=== PATIENT | female | born 1985 | race Hispanic/Latino ===

== ENCOUNTER 2017-12-24 06:51 | Inpatient (IN) | payer BC ==
[2017-12-24 06:58] VITALS: BMI 35.1
[2017-12-24] MEDS ORDERED: Oxytocin 30 units/LR 500ML 30 U/500 ML BAG IV PRN (07:05)
[2017-12-24] MEDS: Lactated Ringer's 1,000 ML IV SCH ×4 (07:15→17:47)
[2017-12-24] MEDS ORDERED: ePHEDrine 50 mg/ml Inj ONE (08:08)
[2017-12-24] MEDS ORDERED: Morphine 1 mg/ml preservative-free Inj(Duramorph) ONE (08:09)
[2017-12-24 08:29] LABS: BASO % 0.5 % (0.0-2.0); EOS # 0.2 K/uL (0.0-0.7); EOS % 2.5 % (0.0-4.0); HEMOGLOBIN 12.6 g/dL (12.0-16.0); LYMPH # 1.5 K/uL (1.0-4.3); LYMPH % 18.3 % (20.0-40.0); MEAN CELL VOLUME 90.5 fl (81.0-99.0); MEAN CORPUSCULAR HEMOGLOBIN 30.6 pg (27.0-31.0); MEAN CORPUSCULAR HGB CONC 33.8 g/dL (33.0-37.0); MEAN PLATELET VOLUME 10.5 fl (7.2-11.7); MONO # 0.7 K/uL (0.0-0.8); MONO % 8.1 % (0.0-10.0); NEUT # 5.8 K/uL (1.8-7.0); NEUT % 70.6 % (50.0-75.0); NRBC % 0.2 % (0.0-0.0); RBC 4.12 Mil/uL (3.80-5.20); RED CELL DISTRIBUTION WIDTH 13.5 % (11.5-14.5); WHITE BLOOD COUNT 8.2 K/uL (4.8-10.8)
[2017-12-24] MEDS ORDERED: ceFAZolin 2 GM in Sodium Chloride 0.9% 100 ML IVPB ONE (08:41)
[2017-12-24 08:57] LABS: ALB/GLOB RATIO 0.8 (1.0-2.1); ALBUMIN 3.1 g/dL (3.5-5.0); ALT/SGPT 65 U/L (9-52); AST/SGOT 36 U/L (14-36); BLOOD UREA NITROGEN 11 mg/dl (7-17); CALCIUM 8.8 mg/dL (8.4-10.2); GFR AFRICAN-AMERICAN > 60; GFR NON-AFRICAN AMERICAN > 60
--- NOTE | 2017-12-24 09:06 | OBADHP ---
Datetime: 12/24/2017 08:45 Admit Comment, IP Provider: Patient is a @ 38 wks, gestational diabetic on insulin, previous x 1, LGA for repeat . Patient was found to have gestational diabetes at about 33 wks, then ws on Glyburide and not well controlled for 3 weeks until converted to insulin. Patient on insulin had labile sugars, was seen by MFM, decision was made for repeat at 38 wks. Patient has an allergy to PCN, develops rash, no stopping breathing, , no other antepartum issues. Previous x 1 for abruption. NO other medical problems, no other surgeries, no other allergies, no ot her medications except insulin. [id number] mod theodora, +accels. no decels TOCO = no ctns A/P 1. patient for repeat , Type and screen, CBC, CMP 2. Consented for repeat 3. CEFM and TOCO 4. Ancef for antibiotics 5. en route to OR Pelvic Type - PN: Adequate Extremities - PN: Normal Abdomen - PN: Normal Back - PN: Normal Breast - PN: Normal Lungs - PN: Normal Heart - PN: Normal Thyroid - PN: Normal Neurologic - PN: Normal HEENT - PN: Normal General - PN: Normal FHR - Baseline A Provider: 120 Vital Signs Provider: Reviewed; Within Normal Limits IP Chief Complaint: Scheduled Section NICHD Variability Prov Fetus A: Moderate 6-25bpm NICHD Accel Fetus A IP Provider: [id number] NICHD Decel Fetus A IP Provider: None Genitourinary Exam: Normal DTRs - PN: Normal IP Adm Impression: Term, intrauterine IP Admit Plan: Initiate Section protocol
--- NOTE | 2017-12-24 10:02 | OBDS ---
MATERNAL INFORMATION Provider Comments: Surgeon: Dr. Schofield Cafeteria Table Attendant: Dr. Rea Pre-op: Gestational Diabetic on Insulin, 38 wks, previous Surgery: repeat-csection Post-op: Same Findings: Live male , 8lbs 10oz, 9/9, clear fluid, grossly nml tubes, ovaries, placenta, katlyn clary EBL: 800mL UO:400mL Total Input:1500mL Complications: none Anesthesia: Spinal by Dr. Watts Condition: stable Pathology: cord blood LABOR SUMMARY No. Babies in Womb: 1 STAGES OF LABOR Stage 3 hrs: 0 Stage 3 min: 1 BABY A INFORMATION Delivery Date/Time: 12/24/2017 09:25 Method of Delivery: SHOULDER DYSTOCIA BABY A Infant Delivery Date/Time: 12/24/2017 09:25 PRESENTATION/POSITION BABY A Presentation: Cephalic PLACENTA INFORMATION BABY A Placenta Delivery Time : 12/24/2017 09:26 Placenta Method of Delivery: Manual Removal Placenta Status: Delivered SCORES BABY A Heart Rate 1 min: >100 bpm Resp Effort 1 min: Good Cry Reflex Irritability 1 min: Cough or Sneeze or Pulls Away Muscle Tone 1 min: Active Motion Color 1 min: Body Simpson, Extremities Blue SCORE 1 MIN: 9 Heart Rate 5 min: >100 bpm Resp Effort 5 min: Good Cry Reflex Irritability 5 min: Cough or Sneeze or Pulls Away Muscle Tone 5 min: Active Motion Color 5 min: Body Simpson, Extremities Blue SCORE 5 MIN: 9 INFANT INFORMATION BABY A Gestational Age at Delivery: 38.0 Gestational Status: Term Outcome : Liveborn Infant Condition : Stable Sex: Male IDENTIFICATION/MEDS BABY A ID Band Number: [id number] ID Band Location: Left Leg; Left Arm WEIGHT/LENGTH BABY A Birthweight (gms): 3900 Weight (lb): 8 Infant Weight (oz): 10 CORD INFORMATION BABY A No. Cord Vessels: 3 Nuchal Cord : N/A Suction: Mouth; Nose; Pharynx ASSESSMENT BABY A Infant Complications: None Physical Findings at Delivery: Within Normal Limits Respirations: Appears Normal Trailer Sections Assembler/ALS Called : No Infant Care By: Dr Suero Transferred To: [facility]
[2017-12-24] MEDS ORDERED: Bisacodyl 5mg EC Tab PO PRN (10:05)
[2017-12-24] MEDS ORDERED: Oxycodone/Acetaminophen 5/325 mg Tab PO PRN (10:05)
[2017-12-24] MEDS ORDERED: Morphine 1 mg/ml preservative-free Inj(Duramorph) IT ONE (12:00)
--- NOTE | 2017-12-24 13:22 | OP ---
PROCEDURE DATE: 12/24/2017 PREOPERATIVE DIAGNOSES: 1. Previous section x1. 2. Gestational diabetes on insulin, uncontrolled at 38 weeks. POSTOPERATIVE DIAGNOSES: 1. Previous section x1. 2. Gestational diabetes on insulin, uncontrolled at 38 weeks. PROCEDURE: Repeat . SURGEON: Callie Schofield MD PUBLIC INTERVIEWER: Kenn Rea MD TYPE OF ANESTHESIA: Spinal. ANESTHESIA ADMINISTERED BY: Dr. Watts. FINDINGS: Live male , cephalic presentation, 8 pounds 10 ounces, 9 and 9 Apgars. Clear fluid. Grossly normal tubes, ovaries, placenta, and uterus. ESTIMATED BLOOD LOSS: 800 mL. URINE OUTPUT: 400 mL. TOTAL FLUID INPUT: 1500 mL. COMPLICATIONS: None. CONDITION: Stable. PATHOLOGY SPECIMEN: Cord blood. INDICATIONS: This is a 32-year-old -0-1-1 at 38 weeks' gestation with gestational diabetes became uncontrolled to slight insulin management and consultation with [facility], it was decided with [facility] to proceed with delivery at 38 weeks. The patient has also had previous x1. The patient was brought in to and consented for procedure. Risks and benefits of procedure including risk of bleeding, infection, damage to surrounding organs such as bowel, bladder, ureter, and uterus. The patient verbalized understanding and signed informed consent. DESCRIPTION OF PROCEDURE: The patient was taken to the OR. Ancef was given preoperatively and anesthesia placed bilaterally. The patient was prepped and draped in a normal sterile fashion in dorsal supine position with a leftward tilt. A Pfannenstiel skin incision was made with the scalpel and carried through the underlying layer of fascia with the scalpel and the Bovie. The fascia was incised in the midline. The incision was extended laterally with the Bovie. Malina clamp was used to tent up the inferior aspect of this incision, which we dissected off the underlying pyramidalis muscles with the Bovie. In similar fashion, we tented up the superior aspect of this incision, which we dissected off of the underlying rectus abdominis muscles with the Bovie. We tented up the rectus abdominis muscles with Allis clamps at the midline and I dissected carefully with the scalpel at the midline. The peritoneal cavity was noted to be entered. We dissected carefully superiorly and inferiorly with good visualization of all underlying organs. The bladder blade was inserted. The vesicouterine peritoneum was identified, grabbed with pickups, and a bladder flap was created with the Metzenbaum scissors. The bladder blade was inserted again. The lower uterine segment was incised in transverse fashion with the scalpel, uterine cavity was entered. The incision was extended bluntly. The infant was delivered in the cephalic presentation followed by shoulders and rest of the atraumatically. Mouth and nose were suctioned. Cords were clamped and cut. The was handed off to the awaiting retail route supervisor. Cord blood was obtained. Placenta was extracted manually. Uterus was exteriorized, cleared off all clots. Uterine incision was repaired with an 0-Vicryl stitch and small bleeding parts were reinforced with [id number]. The gutters were cleared of all clots. Uterus was returned to the abdomen. Again, the hysterotomy was again reinspected and the peritoneum was closed with 2-0 Monocryl, the muscle was reapproximated with the same stitch, the fascia was reapproximated 0 Vicryl stitch and the subcutaneous fat was reapproximated with plain gut suture. Sponge, laps, and needle counts were correct x4. The patient was taken to the recovery room in stable condition. There were no other complications. Callie Schofield MD
[2017-12-24] MEDS: Simethicone 80 mg Chewtab PO SCH ×2 (17:45→23:02)
[2017-12-25] MEDS: Lactated Ringer's 1,000 ML IV SCH (01:32)
[2017-12-25] MEDS: Oxycodone/Acetaminophen 5/325 mg Tab PO PRN (05:04)
[2017-12-25] MEDS: Simethicone 80 mg Chewtab PO SCH ×5 (05:05→21:07)
[2017-12-25 06:30] LABS: MEAN CELL VOLUME 90.5 fl (81.0-99.0); MEAN CORPUSCULAR HEMOGLOBIN 30.8 pg (27.0-31.0); RBC 3.57 Mil/uL (3.80-5.20); RED CELL DISTRIBUTION WIDTH 13.3 % (11.5-14.5); WHITE BLOOD COUNT 10.9 K/uL (4.8-10.8)
--- NOTE | 2017-12-25 10:12 | OBPPN ---
Datetime: 12/25/2017 10:09 PP Pain Prov: Within normal limits PP Nausea Prov: Denies PP Flatus Prov: Yes PP BM Prov: No PP Breasts Prov: Normal PP Heart Prov: Normal PP Lungs Prov: Normal PP Abdomen/Uterus Prov: Normal PP Lochia Prov: Not Done PP Vulva/Perineum Prov: Not Done PP CVA Tenderness Prov: Normal PP Extremities Prov: Normal PP C/S Incision Prov: Normal PP Impression Prov: Normal progression PP Plan Prov: Continue present management PP Progress Note Prov: She is feeling ok considering Sectioned yesterday; tolerated diet and sat in chair H/H A; S/P day 1 (repeat) PLAN: continue postop care Vital Signs Provider PP: Reviewed; Within Normal Limits
[2017-12-26] MEDS: Simethicone 80 mg Chewtab PO SCH ×4 (05:16→22:25)
[2017-12-26] MEDS: Oxycodone/Acetaminophen 5/325 mg Tab PO PRN ×3 (10:05→22:25)
--- NOTE | 2017-12-26 10:17 | OBPPN ---
Datetime: 12/26/2017 10:14 PP Pain Prov: Within normal limits PP Nausea Prov: Denies PP Flatus Prov: Yes PP Breasts Prov: Not Done PP Heart Prov: Normal PP Lungs Prov: Normal PP Abdomen/Uterus Prov: Normal PP Lochia Prov: Not Done PP Vulva/Perineum Prov: Not Done PP CVA Tenderness Prov: Normal PP Extremities Prov: Normal PP Impression Prov: Normal progression PP Plan Prov: Continue present management PP Progress Note Prov: Patient doing well status post delivery ambulating tolerating diet a nd pain controlled with Motrin reports minimal lochia Vital signs stable afebrile Uterus firm below the umbilicus Incision clean dry and intact Extremities no Homans Postoperative day #2 Analgesia as needed, ambulation, and anticipate discharge in a.m. Vital Signs Provider PP: Reviewed
[2017-12-27] MEDS: Simethicone 80 mg Chewtab PO SCH ×2 (04:36→10:34)
--- NOTE | 2017-12-27 10:10 | OBDCSUM ---
Datetime: 12/27/2017 10:09 Discharged to, Provider: Home Follow up at, Provider: Chandu Luna Instr Activity: Normal activity Disch Instr Diet: Regular Discharge Instructions, Provider: Routine instructions given Discharge Diagnosis, Provider: Term Delivered Discharge Time: 12/27/2017 10:09 Follow up in weeks, Provider: 1 week Disch Referrals: None Contraception discussed, Prov: Yes Disch Activity Restrictions: No lifting; Nothing in vagina - [place], tampons, douche Contraception after Delivery: Undecided
--- NOTE | 2017-12-27 10:10 | OBPPN ---
Datetime: 12/27/2017 10:06 PP Pain Prov: Within normal limits PP Nausea Prov: Denies PP Flatus Prov: Yes PP Breasts Prov: Normal PP Heart Prov: Normal PP Lungs Prov: Normal PP Abdomen/Uterus Prov: Normal PP Lochia Prov: Normal PP Vulva/Perineum Prov: Normal PP CVA Tenderness Prov: Normal PP Extremities Prov: Normal PP Comments Phys Exam Prov: Abdomen soft, nontender, nondistended Incision clean, dry, intact, slight malapproximation No deep tenderness bilaterally PP Impression Prov: Normal progression PP Plan Prov: Discharge PP Progress Note Prov: Postoperative day #3 status post , patient recovering well Patient discharged home with postop instructions Patient will return to office in 1 week for incision check IP PP Procedures: None Vital Signs Provider PP: Reviewed; Within Normal Limits
[2017-12-27 17:56] VITALS: BP 130/80; PULSE 77; RESP 18; TEMP 98; O2SAT 95
== END 2017-12-27 12:20 | disposition home or self-care (01) | DRG 766 ==
LOC: H.L&D 07:02 → H.OB/GYN 12:47
PROVIDERS: ADMIT Obstetrics & Gynecology; ATTEND Obstetrics & Gynecology
PROC: 10D00Z1 Extraction of Products of Conception, Low, Open Approach (ICD-10-PCS; principal; 2017-12-24)
PROC: 4A1HXCZ Monitoring of Products of Conception, Cardiac Rate, External Approach (ICD-10-PCS; 2017-12-24)
DX: O24.424 Gestational diabetes mellitus in childbirth, insulin controlled (principal); O24.415 Gestational diabetes mellitus in pregnancy, controlled by oral hypoglycemic drugs; O34.211 Maternal care for low transverse scar from previous cesarean delivery; Z37.0 Single live birth; Z3A.38 38 weeks gestation of pregnancy; Z88.0 Allergy status to penicillin